=== PATIENT | female | born 1935 | race Caucasian/White ===

== ENCOUNTER 2021-11-14 18:20 | Emergency (ER) | payer MEDICARE ==
[~2021-11-14] VITALS: Ht 157.5 cm; Wt 65.8 kg
[~2021-11-14 18:20] MED LIST: AMLODIPINE BESYL5 MG PO; ATENOLOL25 MG PO; BACTRIM DS TAB1 EACH PO; CALCIUM 500 +1 EAC1 PO; COUMADIN5 MG PO; DIOVAN320 MG PO; ESOMEPRAZOLE MA40 MG PO; FLUTICASONE P15.8 ML NAS; HYZAAR 100-12.1 EACH PO; LACTOSE FAS 9000 UNIT PO; LACTOSE MC; LIPITOR20 MG PO; LOSARTAN-HCTZ1 EAC2 PO; LOVENOX80 MG SUB-Q; LYRICA75 MG PO; MAPAP500 M1 PO; NEXIUM40 MG PO; OMEPRAZOLE20 MG PO; ONDANSETRON HCL4 MG PO; PAROXETINE HCL40 MG PO; TENORMIN25 MG PO; TRANSDERM-SCOP1 EA TD; VENLAFAXINE H37.5 M1 PO; VITAMIN D5000 UNIT PO; WARFARIN SODIUM1 MG PO; WARFARIN SODIUM3 MG PO; ZYRTEC10 MG PO
== END 2021-11-14 21:42 | disposition home or self-care (01) ==
LOC: ED 18:20
DX: E86.0 Dehydration (principal); Z20.822 Contact with and (suspected) exposure to COVID-19; I10 Essential (primary) hypertension; E78.00 Pure hypercholesterolemia, unspecified; Z88.2 Allergy status to sulfonamides; Z88.8 Allergy status to other drugs, medicaments and biological substances; Z88.7 Allergy status to serum and vaccine; Z91.040 Latex allergy status; Z79.899 Other long term (current) drug therapy; Z79.01 Long term (current) use of anticoagulants
CPT/HCPCS: 36415; 70450; 80053; 81001; 85025; 85060; 85610; 87502; 99284-25; J7030; U0003

== ENCOUNTER 2022-01-13 10:20 | Day surgery (SDC) | payer MEDICARE ==
[~2022-01-13] VITALS: Ht 157.5 cm; Wt 62.7 kg
[~2022-01-13 10:20] MED LIST changes: +LEXAPRO20 MG PO; +PROMETHAZINE12.5 M1 PO; +WOMEN'S 50 PLU1 EACH PO
--- NOTE | 2022-01-13 12:31 | NUR ---
01/13/22 1231 Manisha Mccani 1226: O2 MASK OFF. PATIENT ON ROOM AIR. 1230: PATIENT ASSISTED TO TURN ON LEFT SIDE.
--- NOTE | 2022-01-25 16:23 | PATH ---
[facility] [address] [facility] [place], [place] [address] Signed THIS IS AN ADDENDUM REPORT SPECIMEN(S): A BONE MARROW - CORE SPECIMEN(S): B BONE MARROW - ASPIRATION SPECIMEN(S): C FLOW CYTOMETRY, BM EDTA CLINICAL HISTORY: Bone marrow biopsy. 86-year-old female with 18-month history of progressive pancytopenia. See attached. D61.818 (other pancytopenia) DIAGNOSIS SUMMARY: Peripheral blood - Pancytopenia, absolute neutrophil count is 1,100/uL. - No circulating blasts are identified. Bone marrow biopsy and aspiration: - Hypercellular marrow, 70%, with less than 1% blasts. - Trilineage hematopoiesis with mild erythroid and myeloid dyspoiesis and with megakaryocytic hyperplasia. - 5-7% polyclonal plasma cells. - Increased marrow iron stores by Prussian Blue stain. - See Diagnostic Comment. DIAGNOSTIC COMMENT: The marrow is hypercellular with mild erythroid and myeloid dyspoiesis. Megakaryocytic hyperplasia is noted. 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 Reactive etiologies for the hypercellular marrow such as viral infection, drug effect, or splenomegaly should be excluded. Pending studies at the time of this report include FISH panel for MDS, chromosome analysis, and NGS panel for MDS. The results will be reported in an addendum. Plasma cells are increased but are polyclonal by flow cytometry and GINETTE staining. Testing for SPEP and SUNI is suggested. JLP:C2NR HISTORICAL SUMMARY: 86-year-old female with unexplained progressive pancytopenia. There is no prior hematologic history in [facility]. PERIPHERAL BLOOD: HEMOGRAM (01/13/2022): WBC 2.4 K/ul, RBC 2.77 M/ul, HGB 10.5 g/dl, HCT 28.3%, PATIENT NAME: AKIN SHAVER PATHOLOGY DATE OF : 37 REPORT #: [id number] PHYSICIAN: ZINA PATHOLOGY PCP: GEORGIA ODOM MD REPORT IS CONFIDENTIAL AND NOT TO BE RELEASED WITHOUT AUTHORIZATION [facility] [address] [place], [place] [address] Signed MCV 102.1 fl, MCH 37.9 pg, MCHC 37.1 g/dl, RDW 16.4%, PLT 116 K/ul, MPV 7.9 fl. AUTOMATED DIFFERENTIAL COUNT: Neutrophils 43.5%, lymphocytes 41.2%, monocytes 14.4%, eosinophils 0.5%, basophils 0.4%. The red blood cells are macrocytic and hyperchromic with mild anisopoikilocytosis. The neutrophils have focal, mild dyspoiesis. Lymphocytes are composed of small mature appearing forms. Platelets are decreased in number with no platelet clumping or RBC microangiopathic effect identified. No blasts are identified. BONE MARROW: ASPIRATE SMEARS/TOUCH IMPRINT: The aspirate smears are adequate for evaluation. Erythroid precursors are relatively increased in numbers with a focal megaloblastoid appearance. The myeloid precursors show full maturation with focal dyspoiesis. There is no increase in blasts. Megakaryocytes are identified with a normal morphology. BONE MARROW DIFFERENTIAL COUNT (300 cells): Blasts less than 1%, promyelocytes 1%, myelocytes 4%, metamyelocytes/bands/segs 34%, erythroid precursors 38%, lymphocytes 15%, monocytes 4%, eosinophils 3%, plasma cells 1%. M:E ratio: 1.1:1 BONE MARROW CORE BIOPSY/ASPIRATE CLOT/CELL BLOCK: The aspirate clot section and the core biopsy are adequate for evaluation. The core biopsy demonstrates unremarkable trabecular bone. The cellularity is increased for age, estimated at 70%. The erythroid precursors are relatively increased with megaloblastoid appearance. The myeloid precursors have focal mild dyspoiesis. Blasts are not increased. Megakaryocytes appear increased in number with a normal morphology. No granulomas, atypical lymphoid aggregates or foreign malignant cells are detected. SPECIAL STAINS (with adequate controls): - iron (aspirate smear): Marrow iron stores appear normal by Prussian Blue staining, but evaluation is limited by a low number of spicules. - iron (cell block): Marrow iron stores appear increased by Prussian Blue stain. No ring sideroblasts are identified. - PAS (block A1): Megakaryocytes are increased in number with a normal morphology. IMMUNOHISTOCHEMISTRY STAINS (performed on block A1 with adequate controls). - CD34: Less than 1% - CD117: 2% - CD71: 40% - CD138: 5-7% - GINETTE [place] and Lambda: Polyclonal PATIENT NAME: AKIN SHAVER PATHOLOGY DATE OF : 37 REPORT #: [id number] PHYSICIAN: ZINA PATHOLOGY PCP: GEORGIA ODOM MD REPORT IS CONFIDENTIAL AND NOT TO BE RELEASED WITHOUT AUTHORIZATION [address] [address] Signed FLOW CYTOMETRY: Bone marrow, flow cytometry: - No diagnostic abnormal populations are identified by flow cytometry. - See comment. COMMENT: The majority of the gated lymphocytes are T-cells with a normal marking pattern. The B-cells are unremarkable with no light chain restriction or aberrant marking. Blasts are not increased. No aberrant marking is detected in the myeloid or monocyte gate areas. Plasma cells are not increased. Correlation with histologic findings is suggested FLOW CYTOMETRY ANALYSIS: FLOW DIFFERENTIAL (% Total CD45 vs. SSC gating): Myeloid 66%; Lymphoid 14%; Monocyte 3%; Dim CD45/Blast: 1.0%. Cell Count: 5.3 x 10*3/uL. POPULATION ANALYSIS: BLASTS: Analysis of the dim CD45 gate demonstrates 1.0% myeloblasts by CD34/CD117. 3.6% hematogones are also detected, a subset of which express CD34. LYMPHOID CELLS: The lymphocyte gate comprises 14% of total events and includes 88% T-cells with a CD4:CD8 ratio of 1.8:1 and normal enwton T-cell antigen expression. 3% of lymphocytes are polyclonal B-cells with a kappa:lambda ratio of 1.6:1. The remainders are NK-cells. MYELOID CELLS: The myeloid population comprises 66% of the total events. No aberrant immunophenotypic expression is detected. MONOCYTES: The monocyte population comprises 3% of the total events. Monocytes are not increased. PLASMA CELLS: An increased number of plasma cells are observed in the screening gate of CD45 neg-dim/CD38. For this reason, select additional antibodies are run to further characterize the plasma cells. 0.9% polyclonal plasma cells are detected (n=424) expressing CD45 DIM-NEG, CD38 BR, CD138 DIM and CD19 DIM while negative for CD20 and CD56 with a ckappa:clambda ratio of 1.5:1. Initial Antibodies Used: KAPPA, LAMBDA, CD20, CD10, CD19, CD23, CD38, CD16, CD56, CD8, CD5, CD2, CD4, CD7, CD3, CD14, CD33, CD13, HLADR, CD34, CD117, CD15, CD45. Additional Antibodies (necessary for further plasma cell analysis): ckappa, clambda, CD138. Total Antibodies Used: 26. JNB PATIENT NAME: AKIN SHAVER PATHOLOGY DATE OF : 37 REPORT #: [id number] PHYSICIAN: ZINA PATHOLOGY PCP: GEORGIA ODOM MD REPORT IS CONFIDENTIAL AND NOT TO BE RELEASED WITHOUT AUTHORIZATION [facility] [address] [place], [place] [address] Signed FINAL DIAGNOSIS PERFORMED BY: Jasson Macias MD, Jan 14 2022 4:16PM CYTOGENETICS: Chromosome analysis is pending, and the result will be reported in an addendum. FISH ANALYSIS: A FISH panel for MDS is pending, and the result will be reported in an addendum. MOLECULAR / PCR: A NGS panel for MDS is pending, and the result will be reported in an addendum. GROSS DESCRIPTION: Two specimens are received in two containers, labeled "PG." A. The specimen, labeled "PG, bone marrow core biopsy," is received in formalin and consists of one pink-hammond, needle core, bone tissue fragment that measures 2.6 cm in length and up to 0.2 cm in diameter. Specimen is left for decalcification in [facility] prior to processing. Specimen is entirely submitted in cassette (A1). B. The specimen, labeled "PG, bone marrow clot," is received in formalin and consists of coagulated blood and tissue fragments that measure 2.0 x 1.5 x 0.4 cm. Specimen is entirely submitted in cassette (B1). JS (under the direct supervision of a pathologist) The Gross Description was prepared using a voice recognition system. The report was reviewed for accuracy; however, sound-alike word errors, addition and/or deletions may occur. If there is any question about this report, please contact Client Services. ADDITIONAL NOTES: This test was developed and its performance characteristics determined by [facility]. It has not been cleared or approved by the US Food and Drug Administration. The FDA does not require this test to go through premarket FDA review. This test is used for clinical purposes. It should not be regarded as investigational or for research. This laboratory is certified under the Clinical Laboratory Improvement Amendments (CLIA) as qualified to perform high complexity clinical laboratory testing. Immunohistochemical and/or in situ hybridization studies were performed on this case with the appropriate positive controls that react as expected. This test PATIENT NAME: AKIN SHAVER PATHOLOGY DATE OF : 37 REPORT #: [id number] PHYSICIAN: ZINA BHATTI PCP: GEORGIA ODOM MD REPORT IS CONFIDENTIAL AND NOT TO BE RELEASED WITHOUT AUTHORIZATION [address] [address] Signed was developed and its performance characteristics determined by [facility]. It has not been cleared or approved by the U.S. Food and Drug Administration. The FDA has determined that such clearance or approval is not necessary. This test is used for clinical purposes. It should not be regarded as investigational or for research. [facility] is certified under the Clinical Laboratory Improvement Amendments of 1988 (CLIA) as qualified to perform high complexity clinical laboratory testing. This assay has not been validated for specimens that have been decalcified. In this case, certain antibodies were performed by both immunohistochemistry and flow cytometry analysis because flow cytometry analysis did not fully explain all the light microscopic findings. Immunohistochemistry aided in the analysis. Both methods are deemed medically necessary in this case. PERFORMING LABORATORY: The technical component of flow cytometry was performed by [facility], [address] [place] [address] (CLIA#: [id number]). Professional interpretation was performed by [facility], [address] [place] [phone] (CLIA#: [id number]). A portion of the technical component was performed by [facility], [address] [place] [id number] (CLIA# [id number]). A portion of the technical component was performed by [facility], [address] [place] [phone] (CLIA#: [id number]). Professional interpretation was performed by [facility], [address] [place] [phone] (CLIA#: [id number]). IMAGES: A: [id number] A: [id number] SPECIMEN SOURCE: A. FISH Analysis, MDS FISH, BM EDTA CLINICAL HISTORY: 86-year-old female with 18-month history of progressive pancytopenia. See attached. D61.818 (other pancytopenia) FISH (fluorescence in situ hybridization) RESULT: Not Detected PATIENT NAME: AKIN SHAVER PATHOLOGY DATE OF : 37 REPORT #: [id number] PHYSICIAN: [facility] PATHOLOGY PCP: GEORGIA ODOM MD REPORT IS CONFIDENTIAL AND NOT TO BE RELEASED WITHOUT AUTHORIZATION [facility] [address] [place], [place] [address] Signed INTERPRETATION: 5q deletion/monosomy 5: Not detected 7q deletion/monosomy 7: Not detected Trisomy 8: Not detected 20q deletion: Not detected KMT2A (MLL) rearrangement: Not detected Fluorescence in situ hybridization (FISH) analysis was performed using a specific set of probes for myelodysplastic syndrome (MDS). Counts for all probe signals were within the normal reference range. No evidence of deletion 5q, 7q or 20q or monosomy 5 or 7, trisomy 8, or KMT2A rearrangement was detected. This finding represents a NORMAL result. This analysis is limited to abnormalities detectable by the specific probes included in the study. FISH should be interpreted within the context of a full cytogenetic analysis and hematologic evaluation. ISCN: Probe Set Detail: EGR1/U0X094: nuc ginette 5p15.31(B8A777i6), 5q31(EGR1x2)[200] U9V556/CEP7: nuc ginette 7q31(A5F503g8),7q11.2q11.21(CEP7x2)[200] CEP8: nuc ginette 8q11.1q11.21(CEP8x2)[200] B30W912: nuc ginette 20q12(C55V252u3)[200] KMT2A (MLL): nuc ginette 11q23(5'KMT2A,3'KMT2A)x2(5'KMT2A con 3'PWE3Hl8)[200] References: Scott Cowart (2013) Hematology Am Soc Hematol Educ Program 2013:504-10. PMID [id number] Aruna Crook and Minal Crain (2011) Hematology 16(3):131-8. PMID: [id number] FISH Analysis Summary: Nuclei Scored: 200 Scoring Method: Manual; CPT Code 52053 Number of Probe units: 4 Multiplex Cells analyzed: Interphase Probe sets: Chrom 8: JOSE 8, Chrom 20: E23Y112, Chrom 5: EGR1, Chrom 5: L1G425, Chrom 7: CEN7, Chrom 7: B1X2649, Chrom 11: KMT2A (MLL) 3', Chrom 11: KMT2A (MLL) 5 ADDITIONAL NOTES: This test was developed and its performance characteristics determined by [facility], [employer]. It has not been cleared or approved by the US Food and Drug Administration. The [employer] DNA probe vendor for this study was [employer]. PERFORMING LABORATORY: PATIENT NAME: AKIN SHAVER PATHOLOGY DATE OF : 37 REPORT #: [id number] PHYSICIAN: [facility] PCP: GEOR[place]IA ODOM MD REPORT IS CONFIDENTIAL AND NOT TO BE RELEASED WITHOUT AUTHORIZATION [address] [address] Signed The technical preparation and professional interpretation were performed by [facility], [address] [place] [address] (CLIA#: [id number]). REASON FOR ADDENDUM: To add results of additional testing. To add results of additional testing. Bone marrow aspirate, chromosome analysis: Karyotype: 46,XX[20] Interpretation: NORMAL FEMALE KARYOTYPE Cytogenetic analysis shows a normal female karyotype in all cells analyzed. Recommendation: This result should be interpreted in conjunction with concurrent FISH, immunophenotypic, molecular and clinical findings. Monitoring by flow, cytogenetics, FISH and molecular studies is recommended. Comments: Standard cytogenetic analysis may not detect subtle submicroscopic rearrangements and may not include metaphases from abnormal cell populations with low mitotic rates or present in low levels. Test Detail: Metaphases Counted: 20 Metaphases Analyzed: 20 Metaphases Karyotyped: 2 Culture Type: 24EB, 48EB Banding Technique: GTG Banding Resolution: 400 CPT Codes: 72316, 46035*, 08600 *Professional interpretation service generally billed directly to carriers by [facility]. The Accessioning Component, Technical Component Processing and Professional Component of this test was completed at [facility] [address] / [address] / [phone] / CLIA #[id number] / Television Servicer(s): Michele Doss M.D. The Technical Component Analysis of this test was completed at [facility] [place], [address] [place] [address] / [address] / [phone] / CLIA #[id number] / Television Servicer(s): Sadia Montilla M.D. Accession / CaseNo: [id number] / [id number] The performance characteristics of this test have been determined by the performing laboratory. This test has not been approved by the FDA. The FDA has determined such clearance or approval is not PATIENT NAME: AKIN SHAVER PATHOLOGY DATE OF : 37 REPORT #: [id number] PHYSICIAN: ZINA BHATTI PCP: [place]IA ODOM MD REPORT IS CONFIDENTIAL AND NOT TO BE RELEASED WITHOUT AUTHORIZATION [place] [id number] [facility] [place], [place] [address] Signed necessary. This laboratory is CLIA certified to perform high complexity clinical testing. Images that may be included within this report are safety representative of the patient but not all testing in its entirety and should not be used to render a result. The CPT codes provided with our test descriptions are based on AMA guidelines and are for informational purposes only. Correct CPT coding is the sole responsibility of the billing green party. Please direct any questions regarding coding to the payer being billed. Diagnostician: Jasson Macias MD Pathologist Diagnostician: Chris Adler MD. MPH Pathologist Electronically Signed 01/25/2022 Copies: ~ PATIENT NAME: AKIN SHAVER PATHOLOGY DATE OF : 37 REPORT #: [id number] PHYSICIAN: ZINA BHATTI PCP: GE[place] ODOM MD REPORT IS CONFIDENTIAL AND NOT TO BE RELEASED WITHOUT AUTHORIZATION
== END 2022-01-13 13:00 | disposition home or self-care (01) ==
LOC: OPS 10:20 → DS 10:20 → OPS 12:00
PROVIDERS: ATTEND Specialist
PROC: 079T3ZX Drainage of Bone Marrow, Percutaneous Approach, Diagnostic (ICD-10-PCS; 2022-01-13)
PROC: 07DR3ZX Extraction of Iliac Bone Marrow, Percutaneous Approach, Diagnostic (ICD-10-PCS; principal; 2022-01-13 12:00)
DX: D46.9 Myelodysplastic syndrome, unspecified (principal); K59.00 Constipation, unspecified; D61.818 Other pancytopenia; Z88.8 Allergy status to other drugs, medicaments and biological substances
CPT/HCPCS: 80053; 82232; 83615; 85025; 88184; 88185; 88305; 88311; 88313; 88342; 88360; 88364; 88365; 88377; J2704; J7121

== ENCOUNTER 2022-02-04 12:02 | Emergency (ER) | payer MEDICARE ==
[~2022-02-04] VITALS: Ht 157.5 cm; Wt 62.6 kg
== END 2022-02-04 15:18 | disposition home or self-care (01) ==
LOC: ED 12:02
DX: R41.0 Disorientation, unspecified (principal); I10 Essential (primary) hypertension; E78.00 Pure hypercholesterolemia, unspecified; Z86.73 Personal history of transient ischemic attack (TIA), and cerebral infarction without residual deficits; Z88.2 Allergy status to sulfonamides; Z88.7 Allergy status to serum and vaccine; Z91.040 Latex allergy status; Z88.8 Allergy status to other drugs, medicaments and biological substances; Z79.01 Long term (current) use of anticoagulants; Z79.899 Other long term (current) drug therapy
CPT/HCPCS: 36415; 70450; 80053; 81001; 85025; 85610; 99285-25; J7030

== ENCOUNTER 2022-04-01 13:39 | Emergency (ER) | payer MEDICARE ==
[~2022-04-01] VITALS: Ht 157.5 cm; Wt 55.8 kg
[~2022-04-01 13:39] MED LIST changes: +HYDROXYZINE HCL10 MG PO
[2022-04-01] MEDS ORDERED: CELECOXIB200 MG PO (14:14)
[2022-04-01] MEDS ORDERED: WARFARIN SODIUM1 MG PO (14:14)
[2022-04-01] MEDS ORDERED: POTASSIUM CHLO10 ME2 PO (14:14)
[2022-04-01] MEDS ORDERED: HYDROXYZINE HCL25 MG PO (14:14)
[2022-04-01] MEDS ORDERED: ESCITALOPRAM OX20 MG PO (14:14)
[2022-04-01] MEDS ORDERED: PREDNISONE10 MG PO (14:15)
[2022-04-01] MEDS ORDERED: ESCITALOPRAM OX10 MG PO (14:15)
== END 2022-04-01 16:00 | disposition home or self-care (01) ==
LOC: ED 13:39
DX: S00.03XA Contusion of scalp, initial encounter (principal); I10 Essential (primary) hypertension; M79.7 Fibromyalgia; E78.00 Pure hypercholesterolemia, unspecified; Z86.73 Personal history of transient ischemic attack (TIA), and cerebral infarction without residual deficits; Z88.2 Allergy status to sulfonamides; Z88.7 Allergy status to serum and vaccine; Z91.040 Latex allergy status; Z91.011 Allergy to milk products; Z79.899 Other long term (current) drug therapy; Z79.01 Long term (current) use of anticoagulants; W19.XXXA Unspecified fall, initial encounter
CPT/HCPCS: 36415; 70450; 72125; 80053; 82150; 82553; 83605; 83690; 85025; 85610; 86850; 86870; 86900; 86901; 99284-25; G0480

== ENCOUNTER 2022-04-27 11:10 | Emergency (ER) | payer MEDICARE ==
[~2022-04-27] VITALS: Ht 157.5 cm; Wt 55.8 kg
[~2022-04-27 11:10] MED LIST changes: +CELECOXIB200 MG PO; +ESCITALOPRAM OX10 MG PO; +ESCITALOPRAM OX20 MG PO; +HYDROXYZINE HCL25 MG PO; +POTASSIUM CHLO10 ME2 PO; +PREDNISONE10 MG PO
[2022-04-27] MEDS ORDERED: CEPHALEXIN500 M1 PO (13:32)
== END 2022-04-27 14:32 | disposition home or self-care (01) ==
LOC: ED 11:10
DX: N39.0 Urinary tract infection, site not specified (principal); R53.1 Weakness; I10 Essential (primary) hypertension; M79.7 Fibromyalgia; E78.00 Pure hypercholesterolemia, unspecified; Z86.73 Personal history of transient ischemic attack (TIA), and cerebral infarction without residual deficits; Z88.2 Allergy status to sulfonamides; Z88.7 Allergy status to serum and vaccine; Z91.040 Latex allergy status; Z88.8 Allergy status to other drugs, medicaments and biological substances; Z79.899 Other long term (current) drug therapy; Z79.01 Long term (current) use of anticoagulants
CPT/HCPCS: 36415; 80053; 81001; 85025; 85610; 99284; A9270; J7121

== ENCOUNTER 2022-06-13 10:45 | Emergency (ER) | payer MEDICARE ==
[~2022-06-13] VITALS: Ht 157.5 cm; Wt 55.8 kg
[~2022-06-13 10:45] MED LIST changes: +CEPHALEXIN500 M1 PO; +LACTAID3000 UNI1 PO; -LACTOSE FAS 9000 UNIT PO
[2022-06-13] MEDS ORDERED: ONDANSETRON ODT8 MG PO (13:22)
== END 2022-06-13 13:46 | disposition home or self-care (01) ==
LOC: ED 10:45
DX: B34.9 Viral infection, unspecified (principal); R53.1 Weakness; I10 Essential (primary) hypertension; E78.00 Pure hypercholesterolemia, unspecified; Z88.2 Allergy status to sulfonamides; Z88.7 Allergy status to serum and vaccine; Z91.040 Latex allergy status; Z88.8 Allergy status to other drugs, medicaments and biological substances; Z79.899 Other long term (current) drug therapy; Z79.01 Long term (current) use of anticoagulants
CPT/HCPCS: 36415; 71045; 80053; 81003; 85025; 85060; 87502; 99284-25; A9270; J7030; U0003

== ENCOUNTER 2022-06-15 15:52 | Inpatient (IN) | payer MEDICARE ==
[~2022-06-15] VITALS: Ht 152.4 cm; Wt 59.0 kg
[~2022-06-15 15:52] MED LIST changes: +ONDANSETRON ODT8 MG PO
--- NOTE | 2022-06-15 20:08 | EKG ---
[facility] [address] [facility] [place] [address] Signed Normal sinus rhythm Normal ECG No previous ECGs available Confirmed by Jose Cheema MD () on 06/15/2022 8:08:50 PM Electronically Signed By: JOSE CHEEMA MD 06/15/22 2008 PATIENT NAME: AKIN SHAVER Electrocardiogram DATE OF : 37 PHYSICIAN: JOSE CHEEMA MD REPORT #: [id number] REPORT IS CONFIDENTIAL AND NOT TO BE RELEASED WITHOUT AUTHORIZATION
--- NOTE | 2022-06-15 20:36 | NUR ---
TELEPHONE REPORT RECEIVED FROM DIRECTOR BIOSTATISTICS BEULAH, QUESTIONS ANSWERED. AWAITING pt's ARRIVAL TO [facility].
--- NOTE | 2022-06-15 21:30 | NUR ---
PT ARRIVED TO [place] @2052, ACCOMPAINED BY HER DAUGHTER CHARLEE. DEPENDENT ON MOVING FROM STRETCHER TO BED, DTR STATES DEMENTIA. PT UNABLE TO ANSWER QUESTIONS, MUMBLES. LIVES AT HOME WITH , WITH FAMILY ASSISTING WELL. COMES TO DAY SURGERY FOR IV INFUSIONS DUE TO PT NOT DRINKING ENOUGH, PER CHARLEE. FIDGITY, SAID SHE NEEDED TO USE BATHROOM, 2 PA, MODERATE ASSIST TO COMMODE, SOAKED ATTENDS REMOVED, PT DID NOT VOID, EASILY DISTRACTED PULLING ON GOWN, BLANKETS, MANY CUES, REMINDERS. BACK TO BED, WITH BEDALARM PLACED.
--- NOTE | 2022-06-15 22:15 | NUR ---
IV PRN MEDICATION ADMINISTERED FOR BLOOD PRESSURE PARAMETERS. LEFT ROOM PT WAS WITH EYES CLOSED, LAYING ON HER LEFT SIDE. BED ALARM IN PLACE
--- NOTE | 2022-06-15 23:10 | NUR ---
VERBAL REPORT TO MONTSE TIDWELL WHO IS TAKING OVER CARE OF pt AT THIS TIME. QUESTIONS ANSWERED, pt'S REPEAT LACTIC IMPROVED AND NOW 1.4. DR CHEEMA UPDATED, ALSO CLARIFIED WITH MD CHEEMA ON TROPONIN RESULTS, LAST BEING AT APPROX 1700 AND WAS 56.6. PER , NO NEED FOR REPEATED/SERIAL TROPONIN TESTS. PASSED ALONG TO NEW PRIMARY MONTSE TIDWELL.
--- NOTE | 2022-06-15 23:15 | NUR ---
BED ALARM SOUNDING, PT FIDIGITY, TRYING TO GET OUT OF BED. WITH ASSIST OF 2 STAFF, PT UP TO BEDSIDE COMMODE. VOIDED 75, THEN BACK TO BED, FOLLOWED SIMPLE COMMANDS. COVERED, BED ALARM IN PLACE.
--- NOTE | 2022-06-16 00:33 | NUR ---
THIS AIRPLANE PILOT HELPER AND PRIMARY RN LONG HELPED PATIENT USE THE BEDSIDE COMMODE. PATIENT ALREADY PEEING WHILE STILL STANDING. PATIENT IS BACK IN BED. BED ALARM ON FOR SAFETY.
--- NOTE | 2022-06-16 00:35 | NUR ---
PT IV INFILTRATED ATTEMPTED TO RESTART X 2 UNSUCCESSFUL CALLED CCU NURSE TO TRY AND START IV SHE ATTEMPTED X 2 UNSUCCESSFUL. 2ND CCU STRTED 2OG LEFT UPPER ARM PT HOOKED BACK UP TO FLUIDS AND RESTING QUIETLY IN BED. BED ALARM ON.
--- NOTE | 2022-06-16 00:43 | NUR ---
NEW IV STARTED IN LEFT UPPER ARM, 20 GAUGE. BRISK BLOOD RETURN. IVF INFUSING. BED ALARM ON.
--- NOTE | 2022-06-16 05:34 | NUR ---
THIS ROVING HAND IN TO DO VITALS AND I&O'S. PATIENT NEEDED TO VOID. PATIENT UP TO BSC, 2PA PIVOT. DEBBIE CARE DONE. PATIENT NOW BACK TO BED, 2PA PIVOT. BED ALARM ON. CALL LIGHT IN REACH. NO FURTHER NEEDS AT THIS TIME.
--- NOTE | 2022-06-16 05:37 | NUR ---
PT ASSISTED TO BSC. PT ASSISTED BACK TO BED SCD PLACED. NO ACUTE DISTRESS NOTED BED IN LOWEST POSITION. BED ALARM ON. WILL CONTINUE TO MONITOR.
--- NOTE | 2022-06-16 07:10 | NUR ---
Report from MONTSE Lopez. Patient repositioned in bed. Bed alarm activated. Call light in reach, bed rails up.
--- NOTE | 2022-06-16 08:30 | NUR ---
Initially spoke with pts son in law Jam Cortez and then her daughter arrived Willow Valentin arrived. She is POA as well as her other daughter. Mable is well known to me as she is a retired nurse and we worked together in the past. Per Willow, pt has declined greatly and has severe dementia. She has hx of several strokes and now has pneumonia. Daughter would like her placed as she is unable to care for self at home. They have hired cg, but pt is above their level of care. We discussed MERRITT and list given. Daughter states pt is on a wait list for all of these. Let her know, I can call [facility] as I believer they have a bed open. They notified me last week. Texted Summer and they do have a bed open in memory care. Time set for the daughters to go and see their facility at 3:30 this after noon. Pt has been living a home. Daughter feels she is in need of a walker or a wc. I will let PT know and request eval with their recommendation. Pts will remain in the home with cg. Pt will require full care for IADLS.
--- NOTE | 2022-06-16 12:30 | NUR ---
Notified by PT, pt will need a wc. I will request rx from Dr. Gifford.
--- NOTE | 2022-06-16 13:03 | NUR ---
PT IN BED, DAUGHTER CHARLEE AT . UNABLE TO UNDERSTAND WHAT PT SAYS, SHE DID KNODD YES FOR PRAYER. GAVE COMFORT TO CHARLEE, HAD PRAYER WITH PT. SHE HELD MY HAND AND SMILED. COULD TELL THAT HER THROAT HURT. WILL PASS ON TO RN. GAVE BLESSING, WILL FOLLOW
--- NOTE | 2022-06-16 16:30 | NUR ---
Notified by Dr. Gifford he has completed documentation and RX for wc. Face sheet, RX, H&P, progress note faxed to [facility] as requested by daughter for wc.
[2022-06-16] MEDS ORDERED: TYLENOL325 MG PO (17:24)
[2022-06-16] MEDS ORDERED: IMODIUM A-D2 M2 PO (17:25)
--- NOTE | 2022-06-16 17:26 | NUR ---
MED REC COMPLETE
--- NOTE | 2022-06-16 17:33 | NUR ---
PATIENT'S DAUGHTERS IN ROOM. CONCERNED ABOUT SWELLING IN LIPS AND THROAT. UPPER LIP DOES NOT APPEAR DIFFERENT FROM THIS AM. PATIENT'S THROAT DOES APPEAR TO HAVE REDNESS NOTED TO AREA, PATIENT SWALLOWS BUT DOES STATE THROAT IS PAINFUL, VERY SLIGHT SWELLING TO THROAT NOTED. DAUGHTERS HAVE BEEN PLACING COOL RAGS OVER AREA. DR. CHEEMA NOTIFIED. NO NEW ORDERS AT THIS TIME.
--- NOTE | 2022-06-16 18:23 | NUR ---
ALERT AND WEAK. REMAINS ON ROOM AIR. CONFUSED. ORAL CARE COMPLETED TODAY, LARGE PLAQUE VIEWED IN MOUTH PRIOR TO. FAMILY BELIEVES UPPER LIP IS SWOLLEN AND HER THROAT. THROAT WITH SLIGHT REDNESS AND SWELLING, BUT HAS HAD A WASHRAG IN PLACE MOST OF TODAY. DR. CHEEMA NOTIFIED TODAY. REMAINS ON IV FLUIDS, IV MAG AND POTASSIUM GIVEN TODAY. FAMILY ANTICIPATING PLACING PATIENT IN FACILITY AT [place]. PATIENT HAS HAD INCREASED WEAKNESS REQUIRING 2 PERSON ASSIST TO BSC. DAUGHTERS STATE SHE IS USUALLY INDEPENDENT AT BASELINE. PATIENT BECOMES TACHYPNIC WITH EXERTION, RECOVERS QUICKLY AT REST.
--- NOTE | 2022-06-16 22:16 | NUR ---
PT LYING IN BED RESTING QUIETLY. RESP EVEN ET UNLABORED. PT ON CONT. PULSE OX. PT HAS SWELLING TO LIPS. PT DAUGHTER AT BEDSIDE. PT 2X ASSIST TO BSC. NO ACUTE DISTRESS NOTED AT THIS TIME.
--- NOTE | 2022-06-17 02:11 | NUR ---
SENT DR. CHEEMA A MESSAGE PT ISN'T ON ANY ABT AND SHE HAS POSITIVE BLOOD CULTURES. PT ONLY RECEIVED ABT IN THE ER.
--- NOTE | 2022-06-17 06:16 | NUR ---
PT RESTING QUIETLY. RESP EVEN ET UNLABORED. PT RECEIVED PRN HYDRALAZINE FOR ELEVATED BP OF 162/69. NO ACUTE DISTRESS NOTED AT THIS TIME. BED ALARM IN PLACE.
--- NOTE | 2022-06-17 07:06 | NUR ---
Report from MONTSE Lopez. Patient alert in bed. No swelling to throat area, no redness noted. Upper lip remains slightly swollen. Patient requests to void. 2 person asssist to BSC. Continent and incontinent of urine. Returns to bed. Bed alarm activated and call light in reach.
--- NOTE | 2022-06-17 08:00 | NUR ---
Spoke with Mable and her daughter, Willow. They are cont. to plan on move to [facility]. I will contact Summer and confirm.
--- NOTE | 2022-06-17 09:00 | NUR ---
ASSESSMENT COMPLETED. PATIENT AMBULATED TO BATHROOM WITH 1 PERSON ASSIST AND WALKER THIS AM. CLEARER MENTATION FROM YESTERDAY NOTED. SITTING UP IN RECLINER WITH DAUGHTER. ST [place] DONE THIS AM. PATIENT IS OK FOR MINCED/MOIST FOOD AND MODERATE THICK LIQUIDS. THICKENED WATER PROVIDED. WARM BLANKET PROVIDED. CHAIR ALARM IN PLACE AND ON, CALL LIGHT IN REACH. DAUGHTER UPDATED ON PATIENT DIET ORDERS. ORAL CARE COMPLETED X2 THIS AM. REMAINS WITH SOME PLAQUE NOTED TO HARD PALATE THIS AM. WILL CONTINUE ORAL CARE.
--- NOTE | 2022-06-17 09:03 | NUR ---
PT CALLED FOR ASSISTANCE UP TO COMMODE. THIS TOE STRIPPER ALONG WITH ARIADNA VIZCAINO ASSISTED PT IN TX. SHE WAS ABLE TO STAND W/ONE KRYSTIN W/THE OTHER ASSISTING W/THE IV POLE. TOE STRIPPER PERFOMED DEBBIE CARE ON PT, PT TX TO CHAIR W/FEET ELEVATED. CHAIR ALARM PLACED AND SET. OUTPUT DOCUMENTED. CALL LIGHT IN REACH. SPEECH THERAPY IN ROOM TO ASSESS PT. NO OTHER NEEDS AT THIS TIME.
--- NOTE | 2022-06-17 09:30 | NUR ---
Pt discussed in 929 meeting. plans for dc tomorrow. He would like pt to remain today for one more day of antibiotics.
--- NOTE | 2022-06-17 11:25 | NUR ---
Contacted transport and they have openings tomorrow at 0830 or 2:30. Contacted Summer at [facility]. They plan on admission tomorrow. Family will complete paperwork today. They would like pt to transport at 08:30. Updated a wc was ordered yesterday from [facility] [place]. I will request orders today and fax to [facility] when completed. They need to complete a Care Plan prior to pts. arrival. Dr Gifford updated. Scheduled transport with the wc for 8:30. Called and confirmed with Shanna at [facility] [place], wc will arrive today.
--- NOTE | 2022-06-17 13:01 | NUR ---
Sitting up in recliner. Family members in room. Deny needs at this time. Call light in reach.
--- NOTE | 2022-06-17 13:48 | NUR ---
IM letter completed with Mable and family member at bedside. Copy provided.
[2022-06-17] MEDS ORDERED: CEFPODOXIME PR200 MG PO (14:18)
--- NOTE | 2022-06-17 14:20 | NUR ---
FAMILY IN VISITING WITH PT. SHE IS IN CHAIR, SEEMS COMFORTABLE. DIFFICULT TO UNDERSTAND. GAVE BLESSING AND WILL FOLLOW
--- NOTE | 2022-06-17 15:08 | NUR ---
BOTH NARES SWABBED, SENT TO LAB
--- NOTE | 2022-06-17 17:18 | NUR ---
ALERT, DISORIENTED TO SITUATION, TIME AND PLACE. FAMILY IN ROOM THROUGHOUT TODAY. REMAINS ON IV FLUIDS. IV ANTIBIOTICS RESTARTED TODAY. IV POTASSIUM ADMINISTERED WELL. SPEECH EVAL COMPLETED, DIET ADVANCED TO MINCED AND MOIST WITH MODERATE THICK LIQUIDS. PLAN TO DC TOMORROW TO [facility] VIA WHEELCHAIR VAN IN THE MORNING.
--- NOTE | 2022-06-17 18:42 | NUR ---
PATIENT PLAN TO DC TO [facility] AT 0830 IN AM ON 06/18/22. DISCUSSED DAILY ANTIBIOTICS WITH DR. ALCALA. VERBAL ORDER TO GIVE ANTIBIOTICS EARLY TOMORROW AM TO ENSURE MEDICATION IS RECEIVED PRIOR TO DC FROM FACILITY IN THE AM.
--- NOTE | 2022-06-17 22:06 | NUR ---
PT LYING IN BED RESTING QUIETLY. RESP EVEN ET UNLABORED ON ROOM AIR. PT MORE ALERT THAN PREVIOUS. PT X1 ASSIST WITH WALKER PT HAS AMBULATED TO THE BATHROOM PT GIVEN PRN HYDRALAZINE FOR ELEVATED BP. NO ACUTE DISTRESS NOTED AT THIS TIME. BED ALARM IN PLACE.
--- NOTE | 2022-06-17 22:15 | NUR ---
pt RESTLESS IN BED, REQUESTING TO GET OOB TO VOID. pt STEADY ON FEET AND REQUIRES OCCAS CUES WITH USE OF WALKER. UNMEASURED VOID AND SMEAR BM NOTED, ASSISTED pt WITH DEBBIE CARE AND NEW CLEAN ATTENDS IN PLACE. pt BACK TO BED, BED ALARM RESUMED. CALL LIGHT IN REACH.
--- NOTE | 2022-06-18 07:41 | NUR ---
REPORT RECEIVED FROM NIGHT RN - PT UP TO CHAIR WITH DIESEL POWERPLANT MECHANIC ASSISTANCE. CALL LIGHT AT SIDE.
--- NOTE | 2022-06-18 07:58 | NUR ---
PATIENT UP IN CHAIR THIS AM. PATIENT NEEDED A BIT MORE ORIENTATION WITH GETTING UP AND GOING TO THE CHAIR THAN BASELINE. AM CARE COMPLETED. CHAIR ALARM ON. CALL LIGHT WITHIN REACH.
--- NOTE | 2022-06-18 08:04 | NUR ---
RN IN ROOM TO ASSESS AND ADMINISTER SCHEDULED MEDICATIONS. PT TO DC TO [facility] THIS AM. NO DIFFICULTY IN SWALLOWING POTASSIUM TABLETS WITH MODERATLY THICK LIQUIDS. PT ALERT IN CHAIR ORIENTED TO SELF ONLY - AWARE SHE IS GOING "SOMEWHERE" AND "HERE FOR INFECTION". CNAS IN ROOM TO PREPARE PT FOR DC.
--- NOTE | 2022-06-18 09:16 | NUR ---
REPORT CALLED TO [facility] - ALL QUESTIONS ANSWERED.
== END 2022-06-18 08:30 | DRG 871 ==
LOC: ED 15:52 → MS 19:19
PROVIDERS: ADMIT Family Medicine; ATTEND Family Medicine
DX: A41.9 Sepsis, unspecified organism (principal); J18.9 Pneumonia, unspecified organism; N17.9 Acute kidney failure, unspecified; D69.6 Thrombocytopenia, unspecified; I10 Essential (primary) hypertension; E87.6 Hypokalemia; E83.42 Hypomagnesemia; Z20.822 Contact with and (suspected) exposure to COVID-19; F03.90 Unspecified dementia, unspecified severity, without behavioral disturbance, psychotic disturbance, mood disturbance, and anxiety; R79.1 Abnormal coagulation profile; E83.39 Other disorders of phosphorus metabolism; M79.7 Fibromyalgia; E78.00 Pure hypercholesterolemia, unspecified; F32.A Depression, unspecified; Z86.73 Personal history of transient ischemic attack (TIA), and cerebral infarction without residual deficits; Z90.49 Acquired absence of other specified parts of digestive tract; Z90.710 Acquired absence of both cervix and uterus; Z98.890 Other specified postprocedural states; Z88.2 Allergy status to sulfonamides; Z88.7 Allergy status to serum and vaccine; Z91.011 Allergy to milk products; Z88.8 Allergy status to other drugs, medicaments and biological substances; Z91.040 Latex allergy status; Z79.899 Other long term (current) drug therapy
CPT/HCPCS: 36415; 71045; 80053; 81001; 83605; 83735; 84100; 84484; 85025; 85610; 87040; 87502; 92610; 93005; 93010; 97110; 97116; 97162; 97165; A9270; C9803; G0480; J0360; J0456; J0696; J3475; J3480; J7030; J7060; J7121; U0003

== ENCOUNTER 2023-09-04 09:49 | Inpatient (IN) | payer MEDICARE ==
[~2023-09-04] VITALS: Ht 157.5 cm; Wt 56.7 kg
[~2023-09-04 09:49] MED LIST changes: +AMOX TR-K CLV1 EAC1 PO; +CEFPODOXIME PR200 MG PO; +CETIRIZINE HCL5 MG PO; +CIPROFLOXACIN250 MG PO; +COZAAR25 MG PO; +ELIQUIS5 MG PO; +IMODIUM A-D2 M2 PO; +JANTOVEN3 MG PO; +LOVENOX60 MG SUB-Q; +MILK OF MA400 MG/5 M PO; +ONDANSETRON HCL8 MG PO; +ROSUVASTATIN CAL5 MG PO; +TYLENOL EXTRA500 MG PO; +TYLENOL325 MG PO; -ZYRTEC10 MG PO
[2023-09-04 10:04] LABS: BASOPHILS 1.1 % (0-2); EOSINOPHILS 0.4 % (0-6); HEMATOCRIT 33.6 % (35.0-50.0); HEMOGLOBIN 11.5 g/dL (12.0-18.0); LYMPHOCYTES 43.7 % (24-44); MCH 27.6 (27-36); MCHC 34.2 g/dl (30-36); MCV 80.7 fl (81-99); MONOCYTES 11.5 % (0-12); NEUTROPHILS 43.3 % (39-80); PLATELET COUNT 134 K/uL (140-440); RBC 4.17 M/ul (4.3-5.7); RDW 17.1 (10.5-15.0)
[2023-09-04] MEDS ORDERED: CIPROFLOXACIN250 MG PO (10:05)
[2023-09-04 10:11] LABS: INR 1.61 (0.80-1.30); PROTIME 18.8 Sec (11.2-14.2)
[2023-09-04 10:16] LABS: ALBUMIN 3.3 g/dL (3.4-5.0); ALBUMIN/GLOBULIN RATIO 0.87 (1.1-2.4); ANION GAP 13.8 (7-21); BILIRUBIN, TOTAL 0.6 ng/dL (0.2-1.0); BUN/CREATININE RATIO 28.91 (6.0-28.6); CREATININE, SERUM 0.83 mg/dL (0.55-1.02); POTASSIUM 3.8 mmol/L (3.5-5.1); PROTEIN, TOTAL 7.1 g/dL (6.4-8.2)
[2023-09-04] MEDS ORDERED: NEXIUM40 MG PO ×2 (10:26→10:29)
--- NOTE | 2023-09-04 12:43 | NUR ---
Pt arrived to room via ED Stretcher, transferred by MONTSE Pritchard. Pt is awake, attempts to answer some questions, but her speech is difficult to understand d/t being slurred. Pt attempts to follow some directions. Two RN Skin assessment performed. Purewick placed at this time. Pt is mostly non-verbal at this time. Verbal report received from MONTSE Guerra. VS BP 135/101 (110), P76, R16, SpO2 98% on room air, T97.4. Pt placed on CPOX at this time as her hands are cool and HR irregular.
[2023-09-04 12:47] VITALS: BP 135/101
[2023-09-04] MEDS ORDERED: ondansetron HCL 4 MG/2 ML VIAL IV PRN (13:15)
[2023-09-04] MEDS ORDERED: ARTIFICIAL TEARS 15 ML BTL OU PRN (13:15)
[2023-09-04] MEDS ORDERED: hydrALAZINE HCL 20 MG/ML VIAL IV PRN (13:15)
[2023-09-04] MEDS ORDERED: MORPHINE SULFATE 4 MG/ML VIAL IV PRN (13:30)
[2023-09-04] MEDS ORDERED: LORazepam 2 MG/ML VIAL IV SCH (14:00)
--- NOTE | 2023-09-04 14:52 | NUR ---
Dr. Camarena requested a bedside swallow eval on this pt and she ordered a clear liquid diet and requests it to be advanced as tolerated. Urine sample will need to be collected still.
[2023-09-04] MEDS ORDERED: LORazepam 2 MG/ML VIAL IV PRN (14:54)
--- NOTE | 2023-09-04 15:28 | NUR ---
medications reconciled using MARs from [facility]
[2023-09-04 15:48] LABS: BILIRUBIN, URINE NEGATIVE (negative); BLOOD/HGB, URINE NEGATIVE (Negative); KETONE, URINE NEGATIVE (Negative); LEUK ESTERASE, URINE NEGATIVE (negative); NITRITE, URINE NEGATIVE (negative); PH, URINE 6.5 (5-7)
[2023-09-04 15:56] LABS: BACTERIA, URINE NONE SEEN /hpf (negative); CASTS, URINE NONE SEEN \\lpf; COLLECTION TYPE, URINE CLEAN CATCH; CRYSTALS, URINE NONE SEEN (0-1+); RED BLOOD CELLS, URINE 0-1 /hpf (0-5); REFLEX CULTURE, URINE No (No); WHITE BLOOD CELLS, URINE 0-1 /HPF (0-5)
[2023-09-04 16:04] VITALS: BP 135/101
[2023-09-04 18:26] VITALS: BP 150/83
--- NOTE | 2023-09-04 19:38 | NUR ---
pt RESTING IN BED WITH EYES CLOSED ON LEFT SIDE. BREATHING UNLABORED. PUREWICK IN PLACE WITH URINE IN CANNISTER. BED ALARM SET.
--- NOTE | 2023-09-04 20:37 | NUR ---
ANSWERED CALL LIGHT, FOUND PT ON BACK, LEFT LEG OVER LEFT SIDE RAIL, RIGHT LEG BENT ON THE BED, RESTLESS; BED ALARM IN PLACE. NON VERBAL, RN LAURITA ASSISTED CLEANING, FRESH ATTENDS, LINENS UNDER PT. CLEAN PUREWICK PLACED, PT WAS SOAKED WITH URINE. NOTED RIGHT ARM DID NOT FUNCTION, BUT PT ABLE TO ROLL ONTO HER RIGHT SIDE AND CURL UP INTO POSITION. PILLOW PLACED BETWEEN LEGS, WELL BEHING BACK; PT CONTINUED NON VERBAL THROUGHOUT CARES. BED ALARM PLACED.
[2023-09-04] MEDS ORDERED: MELATONIN 3 MG TAB PO PRN (21:00)
[2023-09-04 21:44] VITALS: BP 164/100
--- NOTE | 2023-09-04 22:01 | NUR ---
IN ROOM FOR ASSESSMENT. pt PLACED ON TELE 2 PER ORDERS. pt NON-VERBAL. DOES NOT FOLLOW COMMANDS, OPEN EYES INSTRUCTED. ASKED Pt IF WOULD LIKE DRINK OF WATER, PUSHES RN AWAY WITH LEFT HAND WITH ATTEMPTS AT CARES. ASSESSMENT COMPLETE. IV SITE SL WNL, BLOOD RETURN NOTED. PUREWICK IN PLACE, CANNISTER EMPTIED. BED ALARM ON. pt REPOSITIONED IN BED AND TURNS SELF BACK TO RIGHT SIDE, LEGS CURLED UP.
[2023-09-05] VITALS (8 sets, daily range): BP systolic 115–194; BP diastolic 46–102
--- NOTE | 2023-09-05 00:10 | NUR ---
CHECKED ON pt. RESTING IN BED ON BACK, BREATHING UNLABORED. NO DISTRESS NOTED. BED ALARM ON.
--- NOTE | 2023-09-05 01:53 | NUR ---
pt SLEEPING. REPOSITIONED pt WITH PILLOW BETWEEN LEGS AND UPNDER RIGHT HIP. ASSESSMENT COMPLETE. ATTENDS DRY. SMALL AMT URINE IN Pressglue CANNISTER. CALL LIGHT AND PERSONAL SUPPLIES IN REACH.
--- NOTE | 2023-09-05 03:10 | NUR ---
pt SIDEWAYS IN BED, REPOSITIONED, TWO PERSON ASSIST. RESTING WITH EYES CLOSED. pt CONTINUES TO BE NON-VERBAL, NOT FOLLOWING COMMANDS. BED ALARM ON.
--- NOTE | 2023-09-05 05:15 | NUR ---
CHECKED ON pt. pt FOUND WITH LEGS PARTIALLY OVER SIDE RAIL. INCONTINENCE IN ATTENDS. NEW PUREWICK PLACED, ATTENDS CHANGED. pt REPOSITIONED, FLOATING WITH PILLOWS UNDER EACH HIP. pt OPENS EYES WITH VS, TURNS AT THIS TIME. HOB ELEVATED. ATTEMPT FOR SWALLOW EVAL, pt DOES NOT PARTICIPATE. MOUTH SWAB PROVIDED, pt DOES NOT SWALLOW, WATER ROLLS OUT OF MOUTH. BED IN LOW POSITION. BED ALARM ON.
--- NOTE | 2023-09-05 07:02 | NUR ---
Pt report received from MONTSE Crump. Pt is asleep, breathing regular, even, and non-labored, curled up on her right side. Board updated.
--- NOTE | 2023-09-05 07:11 | EKG ---
[facility] [address] [place] [address] Signed Sinus rhythm with premature atrial complexes in a pattern of bigeminy Left axis deviation Minimal voltage criteria for LVH, may be normal variant ( [place] product ) Cannot rule out Inferior infarct , age undetermined Abnormal ECG When compared with ECG of 15-JUL-2023 18:41, premature atrial complexes are now present Nonspecific T wave abnormality, worse in Lateral leads Confirmed by Allen Camarena ([id number]) on 09/05/2023 7:11:45 AM Electronically Signed By: ALLEN CAMARENA MD 09/05/23 0711 PATIENT NAME: AKIN SHAVER Electrocardiogram DATE OF : 37 PHYSICIAN: ALLEN CAMARENA MD REPORT #: [id number] REPORT IS CONFIDENTIAL AND NOT TO BE RELEASED WITHOUT AUTHORIZATION
--- NOTE | 2023-09-05 07:49 | NUR ---
Dr. Camarena in with pt for assessment. Pt is sleeping, but moves easily when noise is made. Oral care performed at this time. Pt BP is 115/102, left arm. IV site has old drainage, flushes well, no return, no swelling, no current leaking. Field start, dressing intact. LCTA, BT active x4, HR irregular. Skin intact. Pt falls back to sleep immediately after stimulation ceases. Side rails up x4, call light in reach.
--- NOTE | 2023-09-05 08:40 | NUR ---
[place] changed, bozena care performed, additional oral care performed. Pt repositioned to her left side, floated on pillows, pillow between knees. Pt is not opening her eyes, is moaning, pulling at gown and other items she can reach. Pt's daughter and grandson arrived to visit with pt. Requested to speak with Dr. Camarena. Concerned about fluids. Daughter states that the pt was coming in to day surgery, weekly, and having fluids infused. PC to Dr. Camarena to advise her that the pt's daughter is here and wishes to speak with her about fluids for the pt. Dr. Camarena advised she would be down shortly.
[2023-09-05] MEDS ORDERED: SODIUM CHLORIDE 0.9% 1,000 ML IV SCH (09:45)
--- NOTE | 2023-09-05 11:44 | NUR ---
Pt's daughter and grandson left to speak with the rest of the family about the pt's POLST form regarding IVF. The daughter, Willow, later called back and stated her father (the pt's ), would really appreciate it if we followed the POLST form and administer IVF to the pt as she is not taking anything by mouth and they are worried about that because she was scheduled to come to day surgery every tuesday to have fluids administered before she was brought to the hospital. Charge Nurse Josephine advised Dr. Camarena of the family's wishes and Dr. Camarena ordered NS @ 75ml/hr. I will continue to monitor the pt as required. Pt's came to visit her. The pt was not responsive to him, either (she did not respond to her daughter or grandson). Her level of response remains at moaning and humming, moving her extremities, but she does not open her eyes.
[2023-09-05] MEDS ORDERED: PHARMACY RENAL DOSE ADJUSTMENT 1 DOSE MISC PO SCH (12:00)
--- NOTE | 2023-09-05 12:33 | NUR ---
Pt is still non-verbal. She moans and pushes things away, but she is not opening her eyes. She refuses to open her mouth for a spoon of jello, or a straw. Lungs clear, dim in bases. Side rails up x4. Call light in reach. IVF infusing at 75ml/hr per emar
--- NOTE | 2023-09-05 13:32 | NUR ---
REPORT FROM MONTSE ARAYA.
--- NOTE | 2023-09-05 14:57 | NUR ---
NEW IV #20 STARTED TO RIGHT UPPER ARM, PATIENT TOLERATED WELL, IVF INFUSING TO RIGHT ARM SITE. LEFT A/C IV SITE IS SALINE LOCKED. PATIENT IS RESTLESS, PLAN TO GIVEN ATIVAN.
--- NOTE | 2023-09-05 15:08 | NUR ---
NURSE LESLY AND I CHANGED PATIENT'S PUREWICK AT 1430. PULLED HER UP IN BED AND REPOSITIONED HER.
--- NOTE | 2023-09-05 18:21 | NUR ---
PATIENT IS RESTLESS, DOES NOT APPEAR TO BE AGITATED, NO ATIVAN GIVEN THIS AFTERNOON.
--- NOTE | 2023-09-05 19:51 | NUR ---
REPORT RECEIVED FROM MONTSE REED. pt RESTING IN BED, FAMILY IN ROOM. LEFT LEG OVER SIDE RAIL. pt REPOSITIONED WITH HAMPER MAKER SINTA ASSIST. PILLOWS UNDER HIPS BILATERALLY AND PILLOW BETWEEN LEGS. SEVERAL BRUISES ON LEGS, FAMILY STATES SHE SWINGS HER LEGS OVER BED AT [facility]. PUREWICK IN PLACE. IVF INFUSING WNL. CLEAR LIQUID TRAYS REMOVED, pt OPENS EYES ONLY SLIGHTLY, CONTINUES TO BE NON-VERBAL. FAMILY REMAINS IN ROOM. BED ALARM ON.
--- NOTE | 2023-09-05 22:20 | NUR ---
RN ENTERS ROOM, pt MOANING, SHIFTING IN BED, RR 22. pt APPEARS RESTLESS. PRN MORPHINE ADMINISTERED. NEW PUREWICK PLACED. ATTENDS DRY. ASSESSMENT COMPLETE. pt PROVIDED WITH ORAL CARE AND FACE WASHED. TEMPERATURE IN ROOM ADJUSTED ROOM SET FOR 76 DEGREES, pt WARM TO TOUCH, 99.7 AXILLARY TEMP. pt REPOSITIONED IN BED WITH PILLOWS UNDER HIPS BILATERALLY AND BETWEEN LEGS. pt SETTLES AT REST RN AND OUTDOOR POWER EQUIPMENT MECHANIC EXIT ROOM.
[2023-09-06] VITALS (9 sets, daily range): BP systolic 155–244; BP diastolic 71–108
--- NOTE | 2023-09-06 00:10 | NUR ---
CHECKED ON pt. RESTING IN BED ON LEFT SIDE, LEGS CURLED UP TO CHEST. EYES CLOSED, BRETHING UNLABORED. NO DISTRESS NOTED AT THIS TIME. IVF INFUSING WNL. BED ALARM ON.
--- NOTE | 2023-09-06 01:13 | NUR ---
CHECKED ON pt. LEFT LEG SHIFTING OVER SIDE RAIL. pt RESTING IN BED, SHIFTING. REPOSITIONED IN BED WITH RN ELVA. PILLOW UNDER LEFT HIP AND BETWEEN LEGS. VS COMPLETE. PRN ANXIETY MEDICATION ADMINISTERED. IVF INFUSING WNL. BED ALARM ON.
--- NOTE | 2023-09-06 04:00 | NUR ---
IN ROOM TO TURN pt. pt RESTING IN BED WITH EYES CLOSED, NO SHIFTING IN BED NOTED, NO FACIAL GRIMACE. ASSESSMENT COMPLETE. TACHYPNIC, RR 22. pt REPOSITIONED WITH PILLOW UNDER RIGHT HIP AND HIGHER IN BED. pt CONTINUES TO HAVE NO MOVEMENT FROM RIGHT SIDE. REMAINS WITH EYES CLOSED. IV SITE ASSESSED, IVF INFUSING WNL. BED ALARM ON.
--- NOTE | 2023-09-06 05:37 | NUR ---
IN ROOM FOR VS, pt SLEEPING, DOES NOT OPEN EYES DURING CARES. NO MOANING OR OBVIOUS FACIAL GRIMACE NOTED. PUREWICK CHANGED. ATTENDS DRY. pt REPOSITIONED IN BED WITH PILLOW UNDER LEFT HIP, LEGS. BED ALARM ON.
--- NOTE | 2023-09-06 07:02 | NUR ---
REPORT RECEIVED FROM FITNESS AND WELLNESS DIRECTOR MONTSE NUÑEZ. PATIENT IS LYING IN BED WITH EYES CLOSED AND RESPIRATIONS ARE EVEN AND UNLABORED. CALL LIGHT AND PERSONAL BELONGINGS ARE WITHIN REACH.
--- NOTE | 2023-09-06 07:49 | NUR ---
UR CLINICAL REVIEW: 2 MN FOR [facility]IC[facility] OBS 09/04/23 @ 1156, CHANGE OF STATUS TO INPT 09/06/23 @ 0748. WILL UP DATE REG NO AUTH REQUIRED RETURN TO [facility] WITH HOSPICE
--- NOTE | 2023-09-06 07:49 | NUR ---
PATIENT NO MEDICATIONS TO ADMINISTER AT THIS TIME. PATIENT IS LYING IN BED. FULL ASSESSMENT COMPLETE AND DOCUMENTED IN THE CHART. PATIENT UNABLE TO VERBALIZE AT THIS TIME. LUNG SOUNDS ARE CLEAR AND THE PATIENT IS ON ROOM AIR. CARDIAC WITH NORMAL S1 AND S2 ON AUSCULTATION. PATIENT IS ON TELEMETRY NUMBER 2 AND THE PATIENT IS IN NORMAL SINUS RHYTHM. RADIAL PULSES ARE STRONG BILATERALLY.BOWEL TONES ARE ACTIVE AND THE PATIENTS LAST BOWEL MOVEMENT WAS ON 09/03/23. BED ALARM ON AND PUREWICK IS IN PLACE. IV SITE IN THE RIGHT UPPER ARM FLUSHED WITH 10 ML NORMAL SALINE. IV DRESSING IS CLEAN, DRY, AND INTACT. NORMAL SALINE IS INFUSING AT 75 ML/HR. SCATTERED BRUISING FOUND ON THE RIGHT LEG AND LEFT LEG. PATIENT NONVERBAL PAIN ASSESSMENT COMPLETE AND GOT 0. PATIENT WITH PILLOW BETWEEN THE LEGS AT THIS TIME. PATIENT STATED NO NEEDS, CALL LIGHT AND PERSONAL BELONGINGS ARE WITHIN REACH.
--- NOTE | 2023-09-06 07:53 | NUR ---
Board has been updated and call light has been placed within reach. No requst from patient at this time
--- NOTE | 2023-09-06 09:00 | NUR ---
Spoke with pts daughter, Willow. Pt is not responding at this time. Per daughter family were debating between hospice and no hospice. Pt has recovered during previous hospital admissions and has been able to resume walking. Pt has had significant dementia for a few years. Dr. Gifford in the room and reviewed hospice with daughter. Let her know I spoke with [facility] and pt can return with or without hospice. They are willing to take her back today. Daughter asks if we can return when he dad gets here at 10:00. We agreed to return when father arrives.
--- NOTE | 2023-09-06 09:50 | NUR ---
PATIENT IV SITE FLUSHED WITH 10 ML NORMAL SALINE AND IS SALINE LOCKED. PATIENT WITH DAUGHTER AND AT THE BEDSIDE. IV FLUIDS DISCONTINUED AT THIS TIME. CALL LIGHT AND PERSONAL BELONGINGS ARE WITHIN REACH.
--- NOTE | 2023-09-06 10:05 | NUR ---
Notified by staff pts spouse has arrived. Texted Dr. Gifford to let him know spouse is here. Met with spouse and daughter. Reviewed hospice with spouse. He is tearful and wants to wait one day to see if pt improves. He stating he just wants her to be able to eat. We discussed Mable is not responding and she cannot take food as she could aspirate. He is in agreement for pt to return to [facility] tomorrow on Hospice, if she does not show improvement. Or as a routine pt if she awakens. Called and left a message for Mirna at Hospice requesting possible admission for tomorrow. Chart faxed to hospice.
--- NOTE | 2023-09-06 11:12 | NUR ---
NOTIFIED BY MONTSE REED THAT FAMILY HAD REQUESTED PRAYER. UPON CONVERSATION FAMILY INDICATED THEY WISHED ANOINTING AND THAT PT WAS NEARING THE END OF HER LIFE. PROVIDED SUPPORTIVE PRESENCE, CONDUCTED MINISTRATION AT TIME OF AND ANOINTED PT PER FAMILY REQUEST. FAMILY EXPRESSED HOPE, GRATITUDE.
[2023-09-06] MEDS ORDERED: DEXTROSE 5% - LACTATED RINGERS 1,000 ML IV SCH (13:15)
--- NOTE | 2023-09-06 13:34 | NUR ---
SKIN ASSESSMENT COMPLETE WITH MONTSE REED. SCATTERED BRUISING OBSERVED ON THE RIGHT AND LEFT LEGS. VARIOUS SCRATCHES SEEN ON THE PATIENTS BACK. DEBBIE CARE COMPLETE. NEW BRIEF AND NEW PUREWICK ARE IN PLACE. IV FLUSHED WITH 10 ML NORMAL SALINE. D5LR IS INFUSING AT 75 ML/HR. PATIENT IS ON TELEMETRY NUMBER 2. PATIENT IN NORMAL SINUS RHYTHM WITH A HR OF 88. PATIENT REPOSITIONED ON THEIR LEFT SIDE. BREAKFAST AND LUNCH TRAYS REMOVED FROM THE PATIENTS ROOM. PATIENT STATED NO FURTHER NEEDS AT THIS TIME. CALL LIGHT AND PERSONAL BELONGINGS ARE WITHIN REACH.
--- NOTE | 2023-09-06 14:30 | NUR ---
Called hospice as I have not heard from them. Mirna is out of the office. Spoke with an RN. She states she will work on admission for tomorrow or delivery of a hospital bed if there isn't a nurse available. She will call the family. Let her know plan is for pt to dc tomorrow and [facility] will provide the care either on hospice or without. They can admit whenever they have a nurse available.
--- NOTE | 2023-09-06 15:15 | NUR ---
WASHED PATIENT'S FACE AND DID ORAL CARE. PUT CHAPSTICK ON HER LIPS. FAMILY CAME IN TO VISIT HER AND BROUGHT HER SOME OLIVERA.
--- NOTE | 2023-09-06 16:00 | NUR ---
Called and spoke with daughter. Hospice called her. Discussed plan for pt to return tomorrow per EMS. Daughter denies other needs.
--- NOTE | 2023-09-06 16:15 | NUR ---
PATIENT IS LYING IN BED WITH EYES CLOSED AND RESPIRATIONS ARE EVEN AND UNLABORED. PATIENT IS AT THE BEDSIDE. PATIENT STATED NO NEEDS AT THIS TIME. CALL LIGHT AND PERSONAL BELONGINGS ARE WITHIN REACH.
--- NOTE | 2023-09-06 18:52 | NUR ---
BP 187/88 WITH A MAP OF 115. HR IS 88. RN NOTIFIED . NO NEW ORDERS AT THIS TIME.
--- NOTE | 2023-09-06 19:30 | NUR ---
PATIENT RESTING IN BED. IVF INFUSING WITH NO ISSUES OR CONCERNS. PATIENT FAMILY AT BEDSIDE. PATIENT APPEARS COMFORTABLE IN BED, NO S/SX OF DISTRESS AT THIS TIME. BED ALARM ON, CALL LIGHT WITHIN REACH.
--- NOTE | 2023-09-06 21:25 | NUR ---
PATIENT RESTING IN BED. RESPIRATIONS UNLABORED. BED ALARM ON, CALL LIGHT WITHIN REACH.
--- NOTE | 2023-09-06 22:15 | NUR ---
dr goddard at rn station, made aware of most recent temp of 101 and of most recent sbp 203 (previous sbp on dayshift trending in 240's). primary rn janes in room completing pt cares, now in pt room with pt and primary rn. md verbalizes plan to assess pt then place new orders.
[2023-09-06] MEDS ORDERED: ATROPINE SULFATE 1% OPTH DROPS SL PRN (22:30)
[2023-09-06] MEDS ORDERED: SCOPOLAMINE 1 MG/3 DAYS PATCH 1 EACH TDSY TD SCH (22:30)
--- NOTE | 2023-09-06 22:31 | NUR ---
PATIENT RESTING IN BED. REPOSITIONED. SECOND RN SKIN CHECK COMPLETED. LUNG SOUNDS DIM THROUGHOUT. SOB NOTED. MD IN TO SEE PATIENT. PATIENT GRIMICING AND RESTLESS. PRN MEDICATIONS GIVEN SEE JUN. BED ALARM ON, CALL LIGHT WITHIN REACH.
--- NOTE | 2023-09-07 00:06 | NUR ---
PATIENT RESTING IN BED WITH EYES CLOSED. RESPIRATIONS EVEN AND UNLABORED. IVF INFUSING WITH NO ISSUES. CALL LIGHT WITHIN REACH. BED ALARM ON.
[2023-09-07 01:59] VITALS: BP 172/86
--- NOTE | 2023-09-07 02:20 | NUR ---
PATIENT RESTING IN BED. VSS. IVF INFUSING WITH NO ISSUES OR CONCERNS. RESTLESSNESS NOTED. EXPIRATORY WHEEZING NOTED IN BILATER UPPER LOBES. RESPIRATIONS APPEAR LABORED. CALL LIGHT WITHIN REACH, BED ALARM ON.
--- NOTE | 2023-09-07 04:15 | NUR ---
RESPIRATORY EFFORT INCREASED. NOTED GRUNTING WHEN EXHALING. VITALS TAKEN BP BELOW PRAMATERS TO GIVE PRN MEDICATIONS AND NEAR PATIENT TREND. SEE CHARTED VITALS. PATIENT REPOSITIONED. RESPIRATORY EFFORT CHANGED. GRUNTING STOPPED. PATIENT WITH EVEN UNLABORED RESPIRATIONS. BED ALARM ON, CALL LIGHT WITHIN REACH.
[2023-09-07 04:47] VITALS: BP 209/81
--- NOTE | 2023-09-07 06:19 | NUR ---
PATIENT RESTING IN BED RESPIRATIONS UNLABORED AT THIS TIME. REPOSITIONED IN BED. CALL LIGHT WITHIN REACH, BED ALARM ON.
--- NOTE | 2023-09-07 07:00 | NUR ---
REPORT RECEIVED FROM FINANCIAL SERVICES REPRESENTATIVE RN LALIT. PATIENT IS LYING IN BED WITH EYES CLOSED AND RESPIRATIONS ARE EVEN AND UNLABORED. D5LR IS INFUSING AT 75 ML/HR. CALL LIGHT AND PERSONAL BELONGINGS ARE WITHIN REACH.
--- NOTE | 2023-09-07 07:50 | NUR ---
NO MEDICATIONS TO ADMINISTER THIS MORNING. FULL ASSESSMENT COMPLETE AND DOCUMENTED IN THE CHART. PATIENT IS ASLEEP AND NOT ORIENT TO PERSON, PLACE, MONTH, AND SITUATION. PATIENT IS ON ROOM AIR. LUNG SOUNDS IN THE UPPER LOBES BILATERALLY WITH EXPIRATORY WHEEZES AND IN THE LUNG BASES BILATERALLY ARE DIMINISHED WITH EXPIRATORY WHEEZEZS. RADIAL PULSES ARE STRONG BILATERALLY. PATIENT IS ON TELEMETRY NUMBER 2 AND IN NORMAL SINUS RHYTHM. HR IS 91. IV SITE IS IN THE RIGHT UPPER ARM AND FLUSHED WITH 10 ML NORMAL SALINE. IV DRESSING IS CLEAN, DRY, AND INTACT. BOWEL TONES ARE ACTIVE IN ALL FOUR QUADRANTS. SKIN ASSESSMENT COMPLETE WITH MONTSE DEMARCO. SCATTERED BRUISING NOTED ON THE LLE AND RLE. VARIOUS SCRATCHES NOTED ON THE PATIENTS BACK. PATIENT WITH PUREWICK AND BRIEF IN PLACE. D5LR IS INFUSING AT 75 ML/HR. PATIENT APPEARS COMFORTABLE WITH NO FIDGETING OR MOANING. DEPENDENT EDEMA NOTED IN THE RIGHT HAND AND IT IS ELEVATED ON A PILLOW. CALL LIGHT AND PERSONAL BELONGINGS ARE WITHIN REACH.
--- NOTE | 2023-09-07 08:05 | NUR ---
Notified by staff, family have concerns for dc today as they don't think hospice will be in to [facility] today. Asked staff to notify me when family arrive. Called Hospice and was able to speak with Ileana. She states Jessi Elder, will be there today and a bed will also be delivered. She will call be back with a time for the bed delivery. I will schedule EMS to transport pt after the bed is delivered.
--- NOTE | 2023-09-07 08:15 | NUR ---
Update sent to Summer at [facility] by text.
--- NOTE | 2023-09-07 08:37 | NUR ---
MANUFACTURING AREA MANAGER ENTERED ROOM FOR MORNING ROUNDING. PT IS LAYING IN BED. MANUFACTURING AREA MANAGER ATTEMPTED TO WAKE PT UP FOR BREAKFAST. PT IS HAVING DEEP BREATHES BUT DID NOT RESPOND TO VERBAL CUES OR A STERNAL RUB TO WAKE UP. CALL LIGHT WITHIN REACH
--- NOTE | 2023-09-07 09:15 | NUR ---
Called daughter, Willow and updated of plan to transport pt back to [facility] today per EMS. Hospice will be there between 1100 and 1200.
[2023-09-07 09:27] VITALS: BP 195/76
--- NOTE | 2023-09-07 10:00 | NUR ---
Orders completed by Dr. Gifford. Faxed orders and dc summary to [facility]. Called EMS and requested transport at 11:00. They will call back and let me know a time they can transport as crew is not in at this time.
--- NOTE | 2023-09-07 10:10 | NUR ---
Spoke with Ileana from Hospice. Rn will be in between 1100 and 1300 for admit. They attempted to deliver a bed, when DME company called bed was declined as pt has hospital bed in her room already. Hospice will bring a comfort kit, hospitalist will not need to write orders for comfort meds. I will schedule transport to take pt to [facility] before staff design engineer arrives. Hospitalist, family, [facility] notified.
--- NOTE | 2023-09-07 10:20 | NUR ---
Notified by staff EMS called the ER and transport will be here around 1030 to pick up operator this pt. Updated the family that are in the room.
[2023-09-07 10:31] VITALS: BP 195/76
--- NOTE | 2023-09-07 10:53 | NUR ---
RN SPOKE WITH SUMMER AT [facility]. REPORT GIVEN. SUMMER WITH NO FURTHER QUESTIONS AT THIS TIME.
== END 2023-09-07 10:43 | DRG 65 ==
LOC: ED 09:49 → MS 09:51
PROVIDERS: Emergency Medicine; ADMIT Family Medicine; ATTEND Family Medicine
DX: I63.9 Cerebral infarction, unspecified (principal); D61.818 Other pancytopenia; G93.49 Other encephalopathy; R29.810 Facial weakness; R13.10 Dysphagia, unspecified; Z66 Do not resuscitate; Z51.5 Encounter for palliative care; F03.90 Unspecified dementia, unspecified severity, without behavioral disturbance, psychotic disturbance, mood disturbance, and anxiety; R79.1 Abnormal coagulation profile; I10 Essential (primary) hypertension; E78.5 Hyperlipidemia, unspecified; I48.91 Unspecified atrial fibrillation; G93.89 Other specified disorders of brain; H91.90 Unspecified hearing loss, unspecified ear; D46.9 Myelodysplastic syndrome, unspecified; M79.7 Fibromyalgia; F32.A Depression, unspecified; Z86.73 Personal history of transient ischemic attack (TIA), and cerebral infarction without residual deficits; Z98.890 Other specified postprocedural states; Z90.49 Acquired absence of other specified parts of digestive tract; Z79.01 Long term (current) use of anticoagulants; Z90.710 Acquired absence of both cervix and uterus; Z88.2 Allergy status to sulfonamides; Z88.7 Allergy status to serum and vaccine; Z88.8 Allergy status to other drugs, medicaments and biological substances; Z91.040 Latex allergy status; Z79.899 Other long term (current) drug therapy; Z79.2 Long term (current) use of antibiotics
CPT/HCPCS: 36415; 70450; 80053; 81001; 85025; 85060; 85610; 93005; 93010; 94760; J0360; J2060; J2270; J7030; J7121